=== PATIENT | female | born 1955 | race Caucasian/White ===

== ENCOUNTER 2024-07-05 17:05 | Emergency (ER) | payer MEDICARE, OTHER ==
[~2024-07-05] VITALS: Ht 172.7 cm; Wt 63.5 kg
[2024-07-05 17:55] LABS: BASOPHILS % (AUTO) 0.3 % (0.0-2.0); EOSINOPHILS % (AUTO) 0.1 % (0.0-6.0); HEMATOCRIT 36 % (33-45); HEMOGLOBIN 12.2 g/dL (11.5-14.8); LYMPHOCYTES # (AUTO) 1.1 K/uL (0.8-4.8); LYMPHOCYTES % (AUTO) 7.1 % (20.0-44.0); MEAN CORPUSCULAR HEMOGLOBIN 32 PG (26.0-33.0); MEAN CORPUSCULAR HGB CONC 34 g/dl (31.0-36.0); MEAN CORPUSCULAR VOLUME 95 fL (82-100); MONOCYTES # (AUTO) 0.7 K/uL (0.1-1.30); MONOCYTES % (AUTO) 4.5 % (2.0-12.0); NEUTROPHILS # (AUTO) 14.1 K/uL (1.8-8.9); PLATELET COUNT (AUTO) 330 K/uL (150-450); RED BLOOD CELL COUNT(AUTO) 3.83 MIL/uL (4.0-5.2); RED CELL DISTRIBUTION WIDTH 13.5 % (11.5-15.0)
[2024-07-05 17:58] LABS: ERYTHROCYTE SEDIMENTATION RATE 14 MM/HR (0-30)
[2024-07-05] MEDS ORDERED: SUMATRIPTAN SUCCINATE 6 MG/0.5 ML VIAL SQ ONE (17:59)
[2024-07-05] MEDS ORDERED: diphenhydrAMINE HCL 50 MG/ML VIAL ONE (17:59)
[2024-07-05] MEDS ORDERED: IBUPROFEN 600 MG TABLET ONE (17:59)
[2024-07-05 18:08] LABS: CREATININE 0.8 mg/dL (0.6-1.3); POTASSIUM 5.2 mmol/L (3.5-5.1)
[2024-07-05] MEDS: IBUPROFEN 600 MG TABLET PO ONE (18:08)
[2024-07-05 18:09] LABS: INR 0.97 (0.91-1.10); PARTIAL THROMBOPLASTIN TIME 22.6 SEC (24.3-34.3); PROTHROMBIN TIME 10.3 SECS (9.2-11.1)
[2024-07-05] MEDS: diphenhydrAMINE HCL 50 MG/ML VIAL IV ONE (18:12)
[2024-07-05] MEDS: SUMATRIPTAN SUCCINATE 6 MG/0.5 ML VIAL SQ ONE (18:12)
[2024-07-05 18:13] LABS: ALBUMIN 3.7 g/dL (3.4-5.0); BILIRUBIN,DIRECT 0.1 mg/dL (0.0-0.2); BILIRUBIN,TOTAL 0.6 mg/dL (0.2-1.0)
[2024-07-05] MEDS ORDERED: MORPHINE SULFATE INJ 4 MG/ML DISP.SYRIN ONE (18:36)
[2024-07-05] MEDS: MORPHINE SULFATE 8 MG/ML VIAL IV ONE (18:41)
[2024-07-05] MEDS ORDERED: SODIUM ZIRCONIUM CYCLOSILICATE 5 GM POWD.PACK ONE (19:06)
[2024-07-05] MEDS: SODIUM ZIRCONIUM CYCLOSILICATE 5 GM POWD.PACK PO ONE (19:09)
[2024-07-05] MEDS: IV NS 0.9% 1,000 ML BAG IV ONE ×2 (19:14)
[2024-07-05] MEDS ORDERED: IBUP-1490 PO (19:51)
[2024-07-05 20:45] VITALS: BP 115/102; TEMP 98.3; O2SAT 98
== END 2024-07-05 20:46 ==
LOC: ER 17:15
DX: R51.9 Headache, unspecified (principal); E86.0 Dehydration; E87.6 Hypokalemia; F41.9 Anxiety disorder, unspecified; I11.9 Hypertensive heart disease without heart failure; J44.9 Chronic obstructive pulmonary disease, unspecified; Z99.81 Dependence on supplemental oxygen
CPT/HCPCS: 99285; 96374; 70450; 71045; 96361; 96375; 93005; 85025; 80048; 80076; 85652; 36415; 85730; 96372; J1200; J3030; J2270; J7030